=== PATIENT | male | born 1965 | race African-American/Black ===

== ENCOUNTER 2016-09-30 17:43 | Emergency (ER) | payer BC ==
[~2016-09-30] VITALS: Ht 172.7 cm; Wt 78.5 kg
--- NOTE | ~2016-09-30 | EKG ---
[place] [address] [employer] [place] [address] ELECTROCARDIOGRAM REPORT Name: KELLYJEMIMA MITUL Room #: DEP [place]#: [id number] Admission: 09/30/16 Attend Phys: Discharge: 09/30/16 Date of : 63 Report #: [id number] THIS REPORT FOR: //name// [facility] ED Test Date: 2016-09-30 Test Time: 17:48:50 Pat Name: JEMIMA MENDOZA Department: Room: Gender: Personnel Interviewer: [id number] : 1965 Requested By: Gordon Harding Order Number: [id number] MD: Teofilo Flores Measurements Intervals [place] Rate: 88 P: 69 GA: 144 QRS: 57 QRSD: 85 T: 34 QT: 347 QTc: 420 Interpretive Statements Sinus rhythm ST elev, probable normal early repol pattern No previous ECG available for comparison Electronically Signed On 10-01-2016 14:14:50 CDT by Teofilo Flores [email or web address] <ELECTRONICALLY SIGNED> By: Teofilo Flores MD 10/01/16 1414 1748 1748 Teofilo Flores MD /EPI
[2016-09-30 19:48] VITALS: BP 135/83
[2016-09-30 19:53] LABS: ANION GAP 7 mmol/L (7-16); BUN 15 mg/dL (7-18); CALCIUM 8.8 mg/dL (8.5-10.1); CHLORIDE 104 mmol/L (98-107); CO2 28 mmol/L (21-32); CREATININE 1.2 mg/dL (0.7-1.3); GLUCOSE 81 mg/dL (74-106); POTASSIUM 3.9 mmol/L (3.5-5.1); SODIUM 139 mmol/L (136-145)
[2016-09-30 19:58] LABS: ABSOLUTE NEUTROPHILS 8.7 thou/uL (1.4-8.2); BASOPHILS 0.5 % (0.0-2.0); EOSINOPHILS 0.7 % (0.0-3.0); HEMATOCRIT 37.4 % (42.0-52.0); HEMOGLOBIN 12.7 gm/dL (14.0-18.0); LYMPHOCYTES 15.1 % (24.0-44.0); MCH 30.3 pg (26.0-34.0); MONOCYTES 10.3 % (1.0-8.0); PLATELET COUNT 209 thou/uL (150-400); POLYS 73.4 % (36.0-66.0); RDW 13.2 % (10.5-14.5); WBC 11.8 thou/uL (4.0-11.0)
[2016-09-30 20:00] LABS: MANUAL DIFF NO
[2016-09-30 20:02] LABS: TROPONIN-I < 0.04 ng/mL (<0.04-0.07)
[2016-09-30] MEDS ORDERED: NAPROSYN500 MG PO (21:21)
== END 2016-09-30 21:31 | disposition home or self-care (01) ==
LOC: ER 17:43
PROVIDERS: Emergency Medicine
DX: R07.89 Other chest pain (principal); F17.210 Nicotine dependence, cigarettes, uncomplicated; F10.99 Alcohol use, unspecified with unspecified alcohol-induced disorder